=== PATIENT | male | born 1955 | race Caucasian/White ===

== ENCOUNTER 2025-03-14 08:49 | Emergency (ER) | payer BC, MEDICAID ==
[~2025-03-14] VITALS: Ht 177.8 cm; Wt 77.1 kg
[2025-03-14 09:11] LABS: PLATELET COUNT (AUTO) 261 K/uL (150-450); RED BLOOD CELL COUNT(AUTO) 4.73 MIL/uL (4.5-6.0); RED CELL DISTRIBUTION WIDTH 14.5 % (11.5-15.0); WHITE BLOOD COUNT (AUTO) 4.8 K/uL (4.3-11.0)
[2025-03-14 09:20] LABS: CALCIUM, SERUM 9.1 mg/dL (8.5-10.1); CREATININE 1.0 mg/dL (0.6-1.3); SODIUM SERUM 144 mmol/L (136-145); UREA NITROGEN, BLOOD 11 mg/dL (7-18)
[2025-03-14 09:40] LABS: PHOSPHORUS 3.0 mg/dL (2.5-4.9)
[2025-03-14] MEDS ORDERED: ASPIRIN 81 MG TAB.CHEW ONE (10:03)
[2025-03-14] MEDS: ASPIRIN 81 MG TAB.CHEW PO ONE (10:07)
[2025-03-14] MEDS: IV NS 0.9% 1,000 ML BAG IV ONE (10:07)
[2025-03-14 11:37] VITALS: BP 155/111; TEMP 98.2; O2SAT 100
== END 2025-03-14 11:38 | disposition home or self-care (01) ==
LOC: ER 08:57
DX: R07.89 Other chest pain (principal); I11.9 Hypertensive heart disease without heart failure; H57.04 Mydriasis; H57.02 Anisocoria; H26.9 Unspecified cataract; E78.5 Hyperlipidemia, unspecified
CPT/HCPCS: 99285; 96360; 71045; 93005 ×3; 85025; 80048; 83735; 84100; 36415; 84443; 84484 ×2; J7030